=== PATIENT | female | born 1985 | race Hispanic/Latino ===

== ENCOUNTER 2020-06-07 17:10 | Emergency (ER) | payer OTHER ==
[~2020-06-07] VITALS: Ht 176.5 cm; Wt 149.7 kg
[~2020-06-07 17:10] MED LIST: BENTYL10 MG PO
[2020-06-07] MEDS ORDERED: ACETAMINOPHEN 325 MG TAB PO ONE (18:00)
== END 2020-06-07 21:27 | disposition home or self-care (01) ==
LOC: ER 17:25
DX: U07.1 COVID-19 (principal); J12.89 Other viral pneumonia; I10 Essential (primary) hypertension
CPT/HCPCS: 71045; 99283